=== PATIENT | male | born 1985 | race Hispanic/Latino ===

== ENCOUNTER 2016-12-05 15:51 | Emergency (ER) | payer SELFPAY ==
[~2016-12-05] VITALS: Ht 170.2 cm; Wt 70.0 kg
[2016-12-05 15:53] VITALS: BP 121/75
[2016-12-05 16:34] LABS: HEMATOCRIT 47.8 % (39.0-50.0); HEMOGLOBIN 16.6 g/dl (14.0-18.0); IMMATURE GRANULOCYTES 0.4 % (0.0-1.0); MEAN CELL VOLUME 88.8 fL CALC (80.0-100.0); MEAN CORPUSCULAR HGB 30.9 pG CALC (26.0-32.0); MEAN CORPUSCULAR HGB CONC 34.7 g/L CALC (32.0-36.0); NEUT# 6.64 thou/uL (1.82-7.42); RED BLOOD COUNT 5.38 mill/uL (4.70-6.10); RED CELL DISTRI WIDTH 12.3 % (11.5-15.5)
[2016-12-05 17:04] LABS: ALBUMIN 4.9 g/dL (3.2-5.0); ALKALINE PHOSPHATASE 98 u/l (38-126); AMYLASE 101 u/l (30-110); ANION GAP 16 (6-22 (CALC)); BILIRUBIN, TOTAL 0.6 mg/dL (0.0-1.4); BUN 16 mg/dL (9-20); BUN/CREATININE RATIO 18 (12-20 (CALC)); CALCIUM 9.6 mg/dL (8.4-10.2); CARBON DIOXIDE 25 mmol/l (22-30); CHLORIDE 105 mmol/l (95-108); CREATININE 0.9 mg/dL (0.7-1.3); GFR > 60 ML/MIN (>=60 (CALC)); GFR FOR AFR.AMER. > 60 ML/MIN (>=60 (CALC)); GLUCOSE 81 mg/dL (75-110); LIPASE 81 u/l (23-300); POTASSIUM 4.6 mmol/l (3.5-5.1); SGOT/AST 34 u/l (17-59); SGPT/ALT 30 u/l (21-72); SODIUM 141 mmol/l (137-146); TOTAL PROTEIN 8.3 g/dL (6.3-8.2)
[2016-12-05 17:12] LABS: MYOGLOBIN 24 ng/mL (0 - 121)
[2016-12-05] MEDS ORDERED: NEXIUM40 M1 PO (17:20)
== END 2016-12-05 17:38 | disposition home or self-care (01) | DRG 392 ==
LOC: ED 15:51
PROVIDERS: Emergency Medicine
DX: K29.00 Acute gastritis without bleeding (principal); K20.9 Esophagitis, unspecified; F17.210 Nicotine dependence, cigarettes, uncomplicated

== ENCOUNTER 2016-12-27 20:02 | Emergency (ER) | payer SELFPAY ==
[~2016-12-27] VITALS: Ht 170.2 cm; Wt 62.2 kg
[~2016-12-27 20:02] MED LIST: NEXIUM40 M1 PO
[2016-12-27] MEDS ORDERED: PERCOCET 5/325M1 TAB PO (22:24)
[2016-12-27] MEDS ORDERED: AMOXICILLIN500 MG PO (22:24)
[2016-12-27 22:57] VITALS: BP 127/74
== END 2016-12-27 22:56 | disposition home or self-care (01) | DRG 159 ==
LOC: ED 20:02
DX: K05.10 Chronic gingivitis, plaque induced (principal); F17.210 Nicotine dependence, cigarettes, uncomplicated; K02.9 Dental caries, unspecified

== ENCOUNTER 2017-04-15 17:17 | Emergency (ER) | payer SELFPAY ==
[~2017-04-15] VITALS: Ht 170.2 cm; Wt 68.2 kg
[~2017-04-15 17:17] MED LIST changes: +AMOXICILLIN500 MG PO; +PERCOCET 5/325M1 TAB PO
[2017-04-15] MEDS ORDERED: ULTRAM50 M1 PO (17:50)
[2017-04-15] MEDS ORDERED: AMOXICILLIN500 MG PO (17:50)
[2017-04-15 18:15] VITALS: BP 125/67
== END 2017-04-15 18:17 | disposition home or self-care (01) | DRG 159 ==
LOC: ED 17:17
DX: K04.7 Periapical abscess without sinus (principal); F17.210 Nicotine dependence, cigarettes, uncomplicated; K02.9 Dental caries, unspecified

== ENCOUNTER 2017-04-17 15:10 | Emergency (ER) | payer SELFPAY ==
[~2017-04-17] VITALS: Ht 170.2 cm; Wt 68.0 kg
[~2017-04-17 15:10] MED LIST changes: +ULTRAM50 M1 PO
[2017-04-17] MEDS ORDERED: CLINDAMYCIN300 M1 PO (15:44)
[2017-04-17] MEDS ORDERED: IBUPROFEN600 MG PO (15:44)
[2017-04-17 15:53] VITALS: BP 135/77
== END 2017-04-17 16:00 | disposition home or self-care (01) | DRG 159 ==
LOC: ED 15:10
DX: K08.89 Other specified disorders of teeth and supporting structures (principal); F17.210 Nicotine dependence, cigarettes, uncomplicated

== ENCOUNTER 2022-08-22 20:57 | Emergency (ER) | payer SELFPAY ==
[~2022-08-22] VITALS: Ht 170.2 cm; Wt 65.0 kg
[~2022-08-22 20:57] MED LIST changes: +CLINDAMYCIN300 M1 PO; +IBUPROFEN600 MG PO
[2022-08-22 21:15] VITALS: BP 129/85
[2022-08-22 21:30] VITALS: BP 130/78
[2022-08-22] MEDS ORDERED: AMOXICILLIN500 MG PO (21:30)
== END 2022-08-22 21:47 | disposition home or self-care (01) | DRG 153 ==
LOC: ED 20:57
DX: J01.90 Acute sinusitis, unspecified (principal); F17.200 Nicotine dependence, unspecified, uncomplicated

== ENCOUNTER 2024-01-03 21:35 | Emergency (ER) | payer SELFPAY ==
[~2024-01-03] VITALS: Ht 170.2 cm; Wt 65.0 kg
[~2024-01-03 21:35] MED LIST changes: +PREDNISONE20 MG PO; +PROAIR HFA IN; +VIBRAMYCIN100 M2 PO; +ZYRTEC10 MG PO
[2024-01-03] MEDS ORDERED: DICLOFENAC SODIUM 75 MG/TAB PO ONE (21:50)
[2024-01-03] MEDS ORDERED: ACETAMINOPHEN 500 MG TAB PO ONE (21:50)
[2024-01-03] MEDS ORDERED: traMADol HCL 50 MG/TAB PO ONE (21:55)
[2024-01-03] MEDS ORDERED: VOLTAREN - GENE75 MG PO (22:33)
[2024-01-03 23:08] VITALS: BP 128/76
== END 2024-01-03 23:08 | disposition home or self-care (01) | DRG 605 ==
LOC: ED 21:35
DX: S20.212A Contusion of left front wall of thorax, initial encounter (principal); F17.210 Nicotine dependence, cigarettes, uncomplicated; W19.XXXA Unspecified fall, initial encounter; Y99.0 Civilian activity done for income or pay

== ENCOUNTER 2024-09-19 20:01 | Emergency (ER) | payer SELFPAY ==
[~2024-09-19] VITALS: Ht 170.2 cm; Wt 68.0 kg
[~2024-09-19 20:01] MED LIST changes: +VOLTAREN - GENE75 MG PO
[2024-09-19] MEDS ORDERED: IBUPROFEN 600 MG/TAB PO ONE (20:20)
[2024-09-19] MEDS ORDERED: IBUPROFEN600 MG PO (20:52)
[2024-09-19 21:06] VITALS: BP 133/76
== END 2024-09-19 21:09 | disposition home or self-care (01) | DRG 605 ==
LOC: ED 20:01
DX: S20.211A Contusion of right front wall of thorax, initial encounter (principal); F17.210 Nicotine dependence, cigarettes, uncomplicated; X58.XXXA Exposure to other specified factors, initial encounter